=== PATIENT | female | born 1950 | race Caucasian/White ===

== ENCOUNTER 2016-05-21 07:41 | Emergency (ER) | payer OTHER ==
[2016-05-21] MEDS ORDERED: ALBUTEROL NEB 2.5 MG/3 ML VIAL.NEB NEB ONE (08:38)
[2016-05-21] MEDS ORDERED: SODIUM CHLORIDE 0.9% 1,000 ML ONE (08:54)
[2016-05-21] MEDS ORDERED: KETOROLAC TROMETHAMINE 30 MG/ML 1 ML VIAL ONE (08:54)
[2016-05-21 09:14] LABS: ABSOLUTE NEUTROPHIL COUNT 3.2 K/mm3 (1.8-7.7); BASO % 0.4 % (0.2-1.0); EOS % 0.9 % (0.9-2.9); HEMATOCRIT 43.6 % (37.0-47.0); HEMOGLOBIN 14.7 gm/l (12.0-16.0); IMM NEUT% 0.2 % (0-1); LYMPH # 0.8 (1.0-4.8); MEAN CELL VOLUME 92.6 fl (81.0-99.0); MEAN CORPUSCULAR HEMOGLOBIN 31.2 pg (27.0-31.0); MEAN CORPUSCULAR HGB CONC 33.7 g/dl (33.0-37.0); MEAN PLATELET VOLUME 10.4 fl (7.4-10.4); MONO # 0.5 (0.0-0.8); MONO % 10.4 % (4-12); NEUT % 71.1 % (43-75); PLATELET COUNT 112 K/mm3 (130-400)
[2016-05-21 09:28] LABS: ALB/GLOB RATIO 1.3 (>1.0); ALBUMIN 3.9 gm/dL (3.5-5.7); CALCIUM 9.3 mg/dL (8.6-10.3)
[2016-05-21 09:30] LABS: TROPONIN I < 0.01 ng/ml (0.0-0.06)
[2016-05-21 09:34] LABS: CKMB ISOENZYME 7.5 ng/ml (0.6-6.3)
--- NOTE | 2016-05-21 09:55 | RAD ---
CHEST 2 VIEWS HISTORY: Cough and fever for four days. Frontal and lateral chest radiographs dated 05/21/16. COMPARISON: None. FINDINGS: FOCAL AIRSPACE OPACITY: No gross airspace consolidation. BRONCHOVASCULAR MARKINGS: Coarsened. PLEURAL EFFUSION: None. CARDIOMEDIASTINAL SILHOUETTE: Nonenlarged. PNEUMOTHORAX: None identified. OSSEOUS STRUCTURES: No grossly destructive lesions. ABDOMEN: Suggested lamellated calcifications compatible with cholelithiasis. IMPRESSION: No gross airspace consolidation. Coarsened bronchovascular markings, which can be seen in the setting of bronchitis, atypical/viral infection, or central airways disease. Evidence of cholelithiasis.
[2016-05-21] MEDS ORDERED: PREDNISONE 20 MG TABLET ONE (10:35)
== END 2016-05-21 11:10 | disposition home or self-care (01) ==
LOC: ED 07:41
DX: R06.02 Shortness of breath (principal); B34.9 Viral infection, unspecified; R74.8 Abnormal levels of other serum enzymes; E03.9 Hypothyroidism, unspecified
CPT/HCPCS: 83880; 85025; 82550; 82553; 80053; 84484; 71020; 94640; 94664; 99283 ×2; 96374; 96361 ×2; 93005; J7512; J1885; J7030